=== PATIENT | male | born 1940 ===

== ENCOUNTER 2017-03-13 10:48 | Emergency (ER) | payer MEDICARE, MEDICAID ==
[2017-03-13 11:05] VITALS: BP 135/73; PULSE 80; RESP 18; TEMP 98; O2SAT 96
--- NOTE | 2017-03-13 11:23 | ED PDOC ---
Lower Extremity Pain/Injury Time Seen by Provider: 03/13/17 11:10 Chief Complaint (Nursing): Lower Extremity Problem/Injury Chief Complaint (Provider): right foot History Per: Patient History/Exam Limitations: no limitations Onset/Duration Of Symptoms: Days (x 2 weeks) Additional Complaint(s): Baron Zheng is a 76 year old male, with a previous medical history of diabetes, who presents to the ED with complaints of left foot skin breakage ongoing 2-3 weeks. Patient reports to developing pain and burning to the site last night which prompted ED visit. PMD: Dr. Melendez Past Medical History Reviewed: Historical Data, Nursing Documentation, Vital Signs Vital Signs: Last Vital Signs Temp 98 F 03/13/17 11:03 Pulse 80 03/13/17 11:03 Resp 18 03/13/17 11:03 BP 135/73 03/13/17 11:03 Pulse Ox 96 03/13/17 11:03 - Medical History PMH: Diabetes - Family History Family History: States: Unknown Family Hx - Allergies Allergies/Adverse Reactions: Allergies Allergy/AdvReac Type Severity Reaction Status Date / Time No Known Allergies Allergy Verified 03/13/17 11:03 Review of Systems ROS Statement: Except As Marked, All Systems Reviewed And Found Negative Musculoskeletal: Positive for: Foot Pain (right foot pain and burning ) Physical Exam - Reviewed Nursing Documentation Reviewed: Yes Vital Signs Reviewed: Yes - Physical Exam Appears: Positive for: Well, Non-toxic, No Acute Distress Skin: Positive for: Normal Color, Warm, Dry Extremity: Positive for: Other (4 cm ulceraton to the lateral right foot with small papular lesions proximally. no induration, crepitus or discharge noted). Negative for: Tenderness, Calf Tenderness Neurologic/Psych: Positive for: Alert, Oriented - ECG O2 Sat by Pulse Oximetry: 96 (RA) Pulse Ox Interpretation: Normal Medical Decision Making Medical Decision Making: Initial Impression: fungal foot infection Initial Plan: * accu-check * podiatry consult * reevaluation Scribe Attestation: Documented by Zelda Roberson, acting as a scribe for Zelda Haynes MD. Provider Scribe Attestation: All medical record entries made by the Scribe were at my direction and personally dictated by me. I have reviewed the chart and agree that the record accurately reflects my personal performance of the history, physical exam, medical decision making, and the department course for this patient. I have also personally directed, reviewed, and agree with the discharge instructions and disposition. Disposition - Clinical Impression Clinical Impression: Tinea pedis - Disposition Referrals: [facility] [Outside] Podiatry Clinic [Outside] Disposition: Routine/Home Disposition Time: 12:40 Condition: STABLE Instructions: Tinea Pedis (ED), Diabetic Foot Care (ED) Print Language: SOMALI
--- NOTE | 2017-03-13 12:19 | CP.PCM.CON ---
History of Present Illness - History of Present Illness History of Present Illness: 76 y/o male with PMHx of DM, HTN, pacemaker, and kidney stones seen at bedside in ED for superficial abrasion of R lateral foot. Pt states that he's had this in past. Pt states that the area gets really dry at times. Pt denies of having any pain to the area. Pt states that it is little itchy and he has picked at it a little bit. Pt denies of changing his shoes or starting a new activity recently. Pt states that he wears leather dress shoes at all times but has not been wearing it for the past couple of days because of the lesion. Pt denies of any trauma to the foot. Pt denies of any recent F/N/V/C/SOB. PMHx: DM, HTN, pacemaker, Kidney stones PSHx: Heart surgery Allergies: N.K.D.A Review of Systems - Constitutional Constitutional: As Per HPI Past Patient History - Past Social History Smoking Status: Never Smoked - CARDIAC Hx Pacemaker: Yes - ENDOCRINE/METABOLIC Hx Diabetes Mellitus Type 2: Yes - PSYCHIATRIC Hx Substance Use: No Meds Allergies/Adverse Reactions: Allergies Allergy/AdvReac Type Severity Reaction Status Date / Time No Known Allergies Allergy Verified 03/13/17 11:03 Physical Exam - Constitutional Appears: Well, Non-toxic, No Acute Distress - Extremities Exam Additional comments: VASC: DP/PT pulses are palpable 2/4 b/l, [employer] INST[employer]ER: < 3 sec x 10, TG: warm to cool, no pitting or non-pitting edema noted DERM: Superficial abrasion of epidermis on the lateral aspect of the right foot at 5th met-cuboid joint with minimal surrounding papular rash, no active drainage, no malodor, no surrounding erythema, no clinical suspicion of active infection NEURO: Protective sensation intact via ipswitch 4/4 b/l ORTHO: no pain on palpation of the lesion or surrounding the lesion - Neurological Exam Neurological exam: Alert, Oriented x3 - Psychiatric Exam Psychiatric exam: Normal Affect, Normal Mood Results - Vital Signs Recent Vital Signs: Last Vital Signs Temp 98 F 03/13/17 11:03 Pulse 80 03/13/17 11:03 Resp 18 03/13/17 11:03 BP 135/73 03/13/17 11:03 Pulse Ox 96 03/13/17 11:29 Assessment & Plan - Assessment and Plan (Free Text) Assessment: 76 y/o male seen at bedside in ED for superficial abrasion of the R foot Plan: Pt evaluated and chart reviewed Pt discussed in details with attending Dr. Orantes Vitals reviewed (afebrile) Cultures taken from the lesion Dressing applied using bacitracin cream, gauze, Kurlix, and ASHOK Pt educated to change the dressing using the cream daily Pt educated to keep the dressing dry at all times Pt educated to wear wide toe box shoe/open toe shoes Pt educated to follow up in next podiatry clinic Pt demonstrated verbal understanding Thank you for the consult - Date & Time Date: 03/13/17 Time: 12:26
== END 2017-03-13 13:00 | disposition home or self-care (01) ==
LOC: H.ER 10:48
DX: B35.3 Tinea pedis (principal); E11.9 Type 2 diabetes mellitus without complications

== ENCOUNTER 2017-12-29 17:10 | Inpatient (IN) | payer MEDICARE, MEDICAID ==
--- NOTE | 2017-12-29 18:18 | ED PDOC ---
HPI: Skin/Bite Injury Time Seen by Provider: 12/29/17 17:40 Chief Complaint (Nursing): Abnormal Skin Integrity Chief Complaint (Provider): Rash History Per: Patient History/Exam Limitations: no limitations Onset/Duration Of Symptoms: Days (14) Quality Of Symptoms: Itching Severity: Moderate Additional History Per: Patient Additional Complaint(s): 77 y/o male who reports that two weeks ago he started to have a rash on the medial left ankle that he thought was due to new shoes that he was wearing. However, the rash has worsened and has also developed on the anterior right lower leg, and bilateral arms. The rash is red and itching. Patient denies fever or chills. Last week, he saw podiatry, who started him on an ointment as he has a history of MRSA. Two days ago, patient saw PMD who started him on Levaquin. At baseline he often gets lesions on his arms due to taking Pradaxa. PMD: Dr. Al Greene Past Medical History Reviewed: Historical Data, Nursing Documentation, Vital Signs Vital Signs: Last Vital Signs Temp 97.5 F L 12/29/17 21:45 Pulse 77 12/29/17 21:45 Resp 20 12/29/17 21:45 BP 152/84 H 12/29/17 21:45 Pulse Ox 96 12/29/17 21:45 - Medical History PMH: Atrial Fibrillation, Diabetes, HTN Other PMH: LA x2, Pacemaker/Defibrulater in place, MRSA - Surgical History Surgical History: Pacemaker Other surgeries: Inguinal hernia repair x2, traumatic right second digit amputation - Family History Family History: States: Unknown Family Hx - Living Arrangements Living Arrangements: With Family - Social History Current smoker - smoking cessation education provided: No Alcohol: None Drugs: Denies - Home Medications Home Medications: Ambulatory Orders Medication Instructions Recorded Allopurinol [Zyloprim] 300 mg PO DAILY 12/29/17 Apixaban [Eliquis] 5 mg PO Q12 12/29/17 Aspirin [Ecotrin] 81 mg PO HS 12/29/17 Calcium Acetate [Phoslo] 667 mg PO DIN 12/29/17 Carvedilol [Coreg] 25 mg PO Q12 12/29/17 Dexlansoprazole [Dexilant] 30 mg PO DAILY 12/29/17 Ergocalciferol (Vitamin D2) 50,000 unit PO Q30D 12/29/17 [Vitamin D2] Folic Acid [Folic Acid] 400 mcg PO DAILY 12/29/17 Icosapent Ethyl [Vascepa] 2 gm PO Q12 12/29/17 Levocetirizine Dihydrochloride 5 mg PO DAILY 12/29/17 [Xyzal] Ranolazine [Ranexa] 500 mg PO Q12 12/29/17 Rosuvastatin Calcium [Crestor] 10 mg PO HS 12/29/17 Tamsulosin [Flomax] 0.4 mg PO HS 12/29/17 Triamcinolone Acetonide [Kenalog 1 appl TOP Q12 12/29/17 0.5% cream] Valsartan/Hydrochlorothiazide 1 tab PO DAILY 12/29/17 [Diovan Hct 160-12.5 mg Tab] hydrOXYzine Pamoate [Vistaril] 25 mg PO Q8 12/29/17 levoFLOXacin [Levaquin] 500 mg PO DAILY 12/29/17 metFORMIN [glucOPHAGE] 1,000 mg PO BID 12/29/17 - Allergies Allergies/Adverse Reactions: Allergies Allergy/AdvReac Type Severity Reaction Status Date / Time amoxicillin Allergy RASH Verified 12/29/17 17:32 Review of Systems ROS Statement: Except As Marked, All Systems Reviewed And Found Negative Constitutional: Negative for: Fever, Chills Musculoskeletal: Positive for: Other (edema of BUE) Skin: Positive for: Rash Physical Exam - Reviewed Nursing Documentation Reviewed: Yes (left Medial Ankle: red nonblanching circular rash with multiple satilite lesions also erythematous and nonblanching. Isolated papular lesions left medial knee. Right anterior tibia: red, nonblanching papules involving the entire anterior tibia. Bilateral arms: multiple purpuric areas of various agees of upper and lower arms, as well as blanching warm erythima right AC, indurated. Smaller area of warm indurated erythema in the left AC. Groin and axilla are without rash. Right thumb, diffuse dry scaly skin with bloody cracks to fold. reported as old eczema) Vital Signs Reviewed: Yes - Physical Exam Appears: Positive for: Non-toxic, No Acute Distress Skin: Positive for: Warm, Rash Eye Exam: Positive for: EOMI, PERRL ENT: Negative for: Pharyngeal Erythema, Tonsillar Exudate Neck: Positive for: Painless ROM, Supple Cardiovascular/Chest: Positive for: Regular Rate, Rhythm. Negative for: Murmur Respiratory: Positive for: Normal Breath Sounds. Negative for: Respiratory Distress Gastrointestinal/Abdominal: Positive for: Soft. Negative for: Tenderness Back: Positive for: Normal Inspection. Negative for: Decreased ROM Extremity: Positive for: Normal ROM. Negative for: Deformity Lymphatic: Negative for: Adenopathy Neurologic/Psych: Positive for: Alert. Negative for: Motor/Sensory Deficits - Laboratory Results Result Diagrams: 12/29/17 18:21 12/29/17 18:21 - ECG O2 Sat by Pulse Oximetry: 94 (RA) Pulse Ox Interpretation: Normal Medical Decision Making Medical Decision Making: Impression: Diffuse Rash Differential Diagnosis includes, but is not limited to: disseminated fungal infection, cellulites, MRSA, coagulopathy, bacterimia Plan: - Labs - Hospitalization for progressive skin rash failing outpatient antihistamine, antibiotic and antifungal treatments. 715p Labs unremarkable. [facility]. IV clindamycin, topical steroid and antifungal orderd. [facility] pt and family findings and plan of care. Scribe Attestation: Documented by Maddison Jimenez, acting as a scribe for Kenyatta Moore MD. Provider Scribe Attestation: All medical record entries made by the Scribe were at my direction and personally dictated by me. I have reviewed the chart and agree that the record accurately reflects my personal performance of the history, physical exam, medical decision making, and the department course for this patient. I have also personally directed, reviewed, and agree with the discharge instructions and disposition. Disposition - Clinical Impression Clinical Impression: Cellulitis of arm, Multiple ecchymoses of both upper arms, Rash in adult Counseled Patient/Family Regarding: Studies Performed, Diagnosis - Disposition Disposition Time: 19:00 Condition: FAIR - Pt Status Changed To: Hospital Disposition Of: Observation - POA Present On Arrival: None
[2017-12-29 18:51] LABS: BASO # 0.1 K/uL (0.0-0.2); BASO % 1.3 % (0.0-2.0); EOS # 0.8 K/uL (0.0-0.7); EOS % 7.9 % (0.0-4.0); HEMOGLOBIN 13.4 g/dL (12.0-18.0); LYMPH # 1.4 K/uL (1.0-4.3); LYMPH % 14.7 % (20.0-40.0); MEAN CELL VOLUME 90.5 fl (80.0-94.0); MEAN CORPUSCULAR HEMOGLOBIN 29.6 pg (27.0-31.0); MEAN CORPUSCULAR HGB CONC 32.7 g/dL (33.0-37.0); MEAN PLATELET VOLUME 7.7 fl (7.2-11.7); MONO # 0.9 K/uL (0.0-0.8); MONO % 9.6 % (0.0-10.0); NEUT # 6.4 K/uL (1.8-7.0); NEUT % 66.5 % (50.0-75.0); RBC 4.55 Mil/uL (4.40-5.90); RED CELL DISTRIBUTION WIDTH 14.9 % (11.5-14.5); WHITE BLOOD COUNT 9.6 K/uL (4.8-10.8)
[2017-12-29 18:57] LABS: VENOUS BLOOD GAS BASE EXCESS 1.2 mmol/L (0.0-2.0); VENOUS BLOOD GAS PCO2 50 mmHg (40-60); VENOUS BLOOD GAS PO2 49 mm/Hg (30-55); VENOUS BLOOD PH 7.35 (7.32-7.43)
[2017-12-29 19:06] LABS: ALB/GLOB RATIO 1.2 (1.0-2.1); ALBUMIN 3.9 g/dL (3.5-5.0); CALCIUM 9.8 mg/dL (8.4-10.2)
[2017-12-29 19:07] LABS: INR 1.5 (0.9-1.2); PARTIAL THROMBOPLASTIN TIME 54.9 Seconds (25.6-37.1); PROTHROMBIN TIME 17.1 Seconds (9.8-13.1)
[2017-12-29] MEDS ORDERED: Clindamycin in NS 300 MG/50 ML BAG IVPB STA (19:30)
[2017-12-29] MEDS ORDERED: DiphenhydrAMINE 50 mg/ml Inj IVP PRN (23:29)
[2017-12-30] MEDS: Aztreonam 1 GM in Sodium Chloride 0.9% 100 ML IVPB SCH ×3 (01:06→16:38)
[2017-12-30] MEDS: Omega-3-Acid Ethyl Esters 1 GM Cap PO SCH ×3 (01:38→21:37)
[2017-12-30] MEDS: Insulin Lispro (humaLOG) 100 Units/ml Inj SC SCH ×4 (07:01→22:00)
[2017-12-30 07:15] LABS: BASO # 0.1 K/uL (0.0-0.2); BASO % 1.1 % (0.0-2.0); EOS # 0.8 K/uL (0.0-0.7); EOS % 9.3 % (0.0-4.0); HEMOGLOBIN 13.1 g/dL (12.0-18.0); LYMPH # 1.2 K/uL (1.0-4.3); LYMPH % 15.1 % (20.0-40.0); MEAN CELL VOLUME 90.3 fl (80.0-94.0); MEAN CORPUSCULAR HEMOGLOBIN 29.9 pg (27.0-31.0); MEAN CORPUSCULAR HGB CONC 33.1 g/dL (33.0-37.0); MEAN PLATELET VOLUME 8.2 fl (7.2-11.7); MONO # 0.9 K/uL (0.0-0.8); MONO % 11.2 % (0.0-10.0); NEUT # 5.1 K/uL (1.8-7.0); NEUT % 63.3 % (50.0-75.0); NRBC % 0.1 % (0.0-0.0); RBC 4.37 Mil/uL (4.40-5.90); RED CELL DISTRIBUTION WIDTH 14.9 % (11.5-14.5); WHITE BLOOD COUNT 8.1 K/uL (4.8-10.8)
[2017-12-30 07:36] LABS: ALB/GLOB RATIO 1.3 (1.0-2.1); ALBUMIN 3.8 g/dL (3.5-5.0); CALCIUM 9.6 mg/dL (8.4-10.2)
[2017-12-30] MEDS: Pantoprazole 40 mg EC Tab PO SCH (08:36)
--- NOTE | 2017-12-30 08:48 | RAD ---
HISTORY: admit COMPARISON: No prior. FINDINGS: LUNGS: Peripheral left lower lobe calcified granuloma. No active pulmonary disease. PLEURA: No significant pleural effusion identified, no pneumothorax apparent. CARDIOVASCULAR: Left subclavian access AICD/ pacemaker. Atherosclerotic aortic calcifications. Cardiomediastinal silhouette enlarged. OSSEOUS STRUCTURES: Degenerative changes. VISUALIZED UPPER ABDOMEN: Normal. OTHER FINDINGS: None. IMPRESSION: No active disease.
--- NOTE | 2017-12-30 09:33 | CP.PCM.HP ---
History of Present Illness - History of Present Illness History of Present Illness: Cc: Skin rash/lesions A 77 year old male who reports that he got rash to the medial left ankle area after using new shoes which progressively worsened and the rash was also noticed on the anterior right lower leg and b/l arms which got worse. He describes the rash as red and itchy and non tender. Patient also denied fever or chills. States he saw a drier helper who treated him with an ointment to cover bacteria infection with no improvement. He then saw his primary care doctor who started him also on Levaquin. His lesions have gotten worse despite all the treatment and he showed up in the ER. Patient has a history of Atrial fibrillation, on anticoagulation with Eliquis and then after Xarelto. He also has a history of diabetes and hypertension. On physical exam, there is a erythematous maculopapular rash ob b/l lower extremities, non tender, no swelling. There was itching and excoriation deshpande on the skin. There was no rash on the back. The rest of the physical exam was normal. The patient was admitted for multiple rashes, cellulitis vs. eczematous rash vs. fungal rash. The patient was started on IV antibiotics in the ER. The patient was admitted to med-surg for further management Present on Admission - Present on Admission Any Indicators Present on Admission: No Review of Systems - Review of Systems All systems: reviewed and no additional remarkable complaints except (as stated) - Constitutional Constitutional: absent: Chills, Fever, Weakness - Cardiovascular Cardiovascular: absent: Chest Pain, Leg Edema - Respiratory Respiratory: absent: Cough, Dyspnea - Integumentary Integumentary: As Per HPI, Erythema, Lesions (bilateral LEs), New Lesions, Pruritus, Rash Past Patient History - Past Medical History & Family History Past Medical History?: Yes - Past Social History Alcohol: None Drugs: Denies - CARDIAC Hx Atrial Fibrillation: Yes Hx Hypertension: Yes Hx Pacemaker: Yes - PULMONARY Hx Respiratory Disorders: No - NEUROLOGICAL Hx Neurological Disorder: No - HEENT Hx HEENT Problems: No - RENAL Hx Chronic Kidney Disease: No - ENDOCRINE/METABOLIC Hx Endocrine Disorders: Yes Hx Diabetes Mellitus Type 2: Yes - HEMATOLOGICAL/ONCOLOGICAL Hx Blood Disorders: No - INTEGUMENTARY Hx Dermatological Problems: Yes Hx Cellulitis: Yes - MUSCULOSKELETAL/RHEUMATOLOGICAL Hx Musculoskeletal Disorders: No Hx Falls: No - GASTROINTESTINAL Hx Gastrointestinal Disorders: No - GENITOURINARY/GYNECOLOGICAL Hx Genitourinary Disorders: No - PSYCHIATRIC Hx Psychophysiologic Disorder: No Hx Substance Use: No - SURGICAL HISTORY Hx Surgeries: Yes Hx Herniorrhaphy: Yes Other/Comment: pacemaker insertion. 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 Hand - ANESTHESIA Hx Anesthesia: Yes Hx Anesthesia Reactions: No Hx Malignant Hyperthermia: No Has any member of the family had a problem w/ anesthesia?: No Meds Allergies/Adverse Reactions: Allergies Allergy/AdvReac Type Severity Reaction Status Date / Time amoxicillin Allergy RASH Verified 12/29/17 17:32 Physical Exam - Constitutional Appears: Well, No Acute Distress - Head Exam Head Exam: ATRAUMATIC, NORMOCEPHALIC - Eye Exam Eye Exam: EOMI, Normal appearance Pupil Exam: NORMAL ACCOMODATION - ENT Exam ENT Exam: Mucous Membranes Moist, Normal Exam - Neck Exam Neck exam: Positive for: Normal Inspection - Respiratory Exam Respiratory Exam: Clear to Auscultation Bilateral, NORMAL BREATHING PATTERN - Cardiovascular Exam Cardiovascular Exam: REGULAR RHYTHM, +S1, +S2 - GI/Abdominal Exam GI & Abdominal Exam: Normal Bowel Sounds, Soft - Rectal Exam Rectal Exam: Deferred - Extremities Exam Extremities exam: Positive for: full ROM Additional comments: skin rashes, erythema bilateral LEs Cellulitis RUE, ecchymosis bilateral UEs - Neurological Exam Neurological exam: Alert, Oriented x3, Reflexes Normal - Psychiatric Exam Psychiatric exam: Normal Affect, Normal Mood - Skin Skin Exam: Dry, Erythema, Rash Results - Vital Signs Recent Vital Signs: Last Vital Signs Temp 97.3 F L 12/30/17 08:13 Pulse 74 12/30/17 08:36 Resp 20 12/30/17 08:13 BP 110/68 12/30/17 08:36 Pulse Ox 97 12/30/17 08:13 - Labs Result Diagrams: 12/30/17 05:25 12/30/17 05:25 Labs: Laboratory Results - last 24 hr 12/29/17 12/29/17 12/29/17 18:21 18:21 18:21 WBC 9.6 RBC 4.55 Hgb 13.4 Hct 41.1 MCV 90.5 MCH 29.6 MCHC 32.7 L RDW 14.9 H Plt Count 225 MPV 7.7 Neut % (Auto) 66.5 Lymph % (Auto) 14.7 L [place] % (Auto) 9.6 Eos % (Auto) 7.9 H Baso % (Auto) 1.3 Neut # (Auto) 6.4 Lymph # (Auto) 1.4 [place] # (Auto) 0.9 H Eos # (Auto) 0.8 H Baso # (Auto) 0.1 ESR 14 PT 17.1 H INR 1.5 H APTT 54.9 H pO2 VBG pH VBG pCO2 VBG HCO3 VBG Total CO2 VBG O2 Sat (Calc) VBG Base Excess VBG Potassium Glucose Lactate FiO2 Crit Value Called To Crit Value Called By Crit Value Read Back Blood Gas Notified Time Sodium 142 Potassium 4.4 Chloride 102 Carbon Dioxide 25 Anion Gap 19 BUN 26 H Creatinine 1.6 H Est GFR ( Amer) 51 Est GFR (Non-Af Amer) 42 POC Glucose (mg/dL) Random Glucose 92 Calcium 9.8 Total Bilirubin 0.3 AST 28 ALT 31 Alkaline Phosphatase 45 Total Protein 7.0 Albumin 3.9 Globulin 3.1 Albumin/Globulin Ratio 1.2 TSH 3rd Generation Venous Blood Potassium 12/29/17 12/29/17 12/29/17 18:37 18:44 21:43 WBC RBC Hgb Hct MCV MCH MCHC RDW Plt Count MPV Neut % (Auto) Lymph % (Auto) [place] % (Auto) Eos % (Auto) Baso % (Auto) Neut # (Auto) Lymph # (Auto) [place] # (Auto) Eos # (Auto) Baso # (Auto) ESR PT INR APTT pO2 49 VBG pH 7.35 VBG pCO2 50 VBG HCO3 25.4 VBG Total CO2 29.1 H VBG O2 Sat (Calc) 79.4 H VBG Base Excess 1.2 VBG Potassium 4.3 Glucose 91 Lactate 2.0 FiO2 21.0 Crit Value Called To dayne Moore md Crit Value Called By [facility] Crit Value Read Back Y Blood Gas Notified Time 185 Sodium 138.0 Potassium Chloride 102.0 Carbon Dioxide Anion Gap BUN Creatinine Est GFR ( Amer) Est GFR (Non-Af Amer) POC Glucose (mg/dL) 77 80 Random Glucose Calcium Total Bilirubin AST ALT Alkaline Phosphatase Total Protein Albumin Globulin Albumin/Globulin Ratio TSH 3rd Generation Venous Blood Potassium 4.3 12/30/17 12/30/17 12/30/17 05:25 05:25 05:43 WBC 8.1 RBC 4.37 L Hgb 13.1 Hct 39.5 MCV 90.3 MCH 29.9 MCHC 33.1 RDW 14.9 H Plt Count 225 MPV 8.2 Neut % (Auto) 63.3 Lymph % (Auto) 15.1 L [place] % (Auto) 11.2 H Eos % (Auto) 9.3 H Baso % (Auto) 1.1 Neut # (Auto) 5.1 Lymph # (Auto) 1.2 [place] # (Auto) 0.9 H Eos # (Auto) 0.8 H Baso # (Auto) 0.1 ESR 17 PT INR APTT pO2 VBG pH VBG pCO2 VBG HCO3 VBG Total CO2 VBG O2 Sat (Calc) VBG Base Excess VBG Potassium Glucose Lactate FiO2 Crit Value Called To Crit Value Called By Crit Value Read Back Blood Gas Notified Time Sodium 144 Potassium 4.1 Chloride 101 Carbon Dioxide 28 Anion Gap 19 BUN 23 H Creatinine 1.5 Est GFR ( Amer) 55 Est GFR (Non-Af Amer) 46 POC Glucose (mg/dL) 99 Random Glucose 107 Calcium 9.6 Total Bilirubin 0.5 AST 25 ALT 30 Alkaline Phosphatase 48 Total Protein 6.8 Albumin 3.8 Globulin 3.0 Albumin/Globulin Ratio 1.3 TSH 3rd Generation 1.88 Venous Blood Potassium Assessment & Plan (1) Cellulitis of arm Assessment and Plan: IV antibiotics started Status: Acute (2) Rash in adult Assessment and Plan: Eczematous rashes vs. fungal infection IVF IV Benadryl Blood culture will monitor Status: Acute (3) Multiple ecchymoses of both upper arms Status: Acute
--- NOTE | 2017-12-30 11:45 | CARD ---
APPROVED REPORT EKG Measurement Heart [id number] <Conclusion> Atrial-sensed ventricular-paced rhythm Abnormal ECG
[2017-12-30] MEDS: DiphenhydrAMINE 50 mg/ml Inj IVP PRN (21:33)
[2017-12-30] MEDS: Docusate-Senna 50 mg-8.6 mg Tab PO SCH (21:37)
[2017-12-31] MEDS: Aztreonam 1 GM in Sodium Chloride 0.9% 100 ML IVPB SCH (01:17)
[2017-12-31] MEDS: DiphenhydrAMINE 50 mg/ml Inj IVP PRN ×2 (03:13→21:18)
[2017-12-31] MEDS: Insulin Lispro (humaLOG) 100 Units/ml Inj SC SCH ×4 (07:30→22:00)
[2017-12-31] MEDS: Omega-3-Acid Ethyl Esters 1 GM Cap PO SCH ×2 (08:28→21:17)
[2017-12-31] MEDS: Pantoprazole 40 mg EC Tab PO SCH (08:29)
--- NOTE | 2017-12-31 12:25 | US ---
PROCEDURE: Duplex ultrasound of the bilateral lower extremity arteries. HISTORY: CLAUDICATION COMPARISON: None available. TECHNIQUE: Grayscale and duplex Doppler evaluation of the bilateral common femoral, superficial femoral, popliteal, posterior tibial and dorsalis pedis arteries was performed. FINDINGS: RIGHT LOWER EXTREMITY: RIGHT COMMON FEMORAL ARTERY: Calcific atherosclerosis. Maximal flow velocity of 126.8 cm/s. RIGHT SUPERFICIAL FEMORAL ARTERY: * Proximal: Widely patent. Maximal flow velocity of 98.9 cm/s. * Mid: Widely patent. Maximal flow velocity of 93.3 cm/s. * Distal: Widely patent. Maximal flow velocity of 101.6 cm/s. RIGHT POPLITEAL ARTERY: Heavy calcific atherosclerosis. Maximal flow velocity of 42.8 cm/s. RIGHT ANTERIOR TIBIAL ARTERY: Widely patent. Maximal flow velocity of 31.2 cm/s. RIGHT POSTERIOR TIBIAL ARTERY: Heavy calcific atherosclerosis. Maximal flow velocity of 50.1 cm/s. RIGHT DORSALIS PEDIS ARTERY: Widely patent. Maximal flow velocity of 40.6 cm/s. LEFT LOWER EXTREMITY: LEFT COMMON FEMORAL ARTERY: Calcific atherosclerosis. Maximal flow velocity of 144.6 cm/s. LEFT SUPERFICIAL FEMORAL ARTERY: * Proximal: Calcific atherosclerosis. Maximal flow velocity of 55.9 cm/s. * Mid: Calcific atherosclerosis Maximal flow velocity of 95.5 cm/s. * Distal: Widely patent. Maximal flow velocity of 139.8 cm/s. LEFT POPLITEAL ARTERY: Calcific atherosclerosis Maximal flow velocity of 64.9 cm/s. LEFT ANTERIOR TIBIAL ARTERY: Widely patent. Maximal flow velocity of 26.3 cm/s. LEFT POSTERIOR TIBIAL ARTERY: Widely patent. Maximal flow velocity of 36.1 cm/s. LEFT DORSALIS PEDIS ARTERY: Widely patent. Maximal flow velocity of 64.0 cm/s. OTHER FINDINGS: Left ankle subcutaneous edema. IMPRESSION: Bilateral lower extremity arterial calcific atherosclerosis. No evidence of occlusion or hemodynamically significant stenosis.
[2017-12-31] MEDS: Docusate-Senna 50 mg-8.6 mg Tab PO SCH (21:17)
--- NOTE | 2017-12-31 22:34 | CP.PCM.PN ---
Subjective - Date & Time of Evaluation Date of Evaluation: 12/31/17 Time of Evaluation: 11:40 - Subjective Subjective: Seen and examined at bedside. Concerned about rash to lower extremities. B/l upper extremities still very itchy. Swelling and redness, right arm Objective - Vital Signs/Intake and Output Vital Signs (last 24 hours): Temp Pulse Resp BP Pulse Ox 97.6 F 86 20 135/85 97 12/31/17 16:10 12/31/17 21:16 12/31/17 16:10 12/31/17 21:16 12/31/17 16:10 - Medications Medications: Current Medications Allopurinol (Zyloprim) 300 mg PO DAILY [facility] Last Admin: 12/31/17 08:28 Dose: 300 mg Apixaban (Eliquis) 5 mg PO Q12 [facility] PRN Reason: Protocol Last Admin: 12/31/17 21:17 Dose: 5 mg Aspirin (Ecotrin) 81 mg PO HS [facility] Last Admin: 12/31/17 21:18 Dose: 81 mg Atorvastatin Calcium (Lipitor) 20 mg PO HS [facility] Last Admin: 12/31/17 21:17 Dose: 20 mg Carvedilol (Coreg) 25 mg PO Q12 [facility] Last Admin: 12/31/17 21:16 Dose: 25 mg Clotrimazole (Lotrimin 1% Cream) 1 applic TOP BID [facility] Last Admin: 12/31/17 16:30 Dose: 1 applic Diphenhydramine HCl (Benadryl) 25 mg IVP Q6 PRN PRN Reason: Itching / Pruritus Last Admin: 12/31/17 21:18 Dose: 25 mg Folic Acid (Folic Acid) 1 mg PO DAILY [facility] Last Admin: 12/31/17 08:28 Dose: 1 mg Home Med (Ranolazine [Ranexa]) 500 mg PO Q12 [facility] Last Admin: 12/31/17 21:18 Dose: 500 mg Hydrochlorothiazide (Microzide) 12.5 mg PO DAILY [facility] Last Admin: 12/31/17 08:28 Dose: 12.5 mg Hydrocortisone (Cortizone 1% Cream) 1 applic TOP BID [facility] Last Admin: 12/31/17 16:31 Dose: 1 applic Hydroxyzine Pamoate (Vistaril) 25 mg PO Q8 [facility] Last Admin: 12/31/17 16:30 Dose: 25 mg Insulin Human Lispro (Humalog) 0 units SC [facility] PRN Reason: Protocol Last Admin: 12/31/17 16:29 Dose: Not Given Loratadine (Claritin) 10 mg PO DAILY [facility] Last Admin: 12/31/17 08:29 Dose: 10 mg Metformin HCl (Glucophage) 1,000 mg PO BID [facility] Last Admin: 12/31/17 16:31 Dose: 1,000 mg Zuiju-9-[id number] Ethyl Esters (Lovaza) 2 gm PO Q12 [facility] Last Admin: 12/31/17 21:17 Dose: 2 gm Pantoprazole Sodium (Protonix Ec Tab) 40 mg PO DAILY [facility] Last Admin: 12/31/17 08:29 Dose: 40 mg Senna/Docusate Sodium (Senokot S 50 Mg-8.6 Mg) 2 tab PO HS [facility] Last Admin: 12/31/17 21:17 Dose: 2 tab Tamsulosin HCl (Flomax) 0.4 mg PO HS [facility] Last Admin: 12/31/17 21:17 Dose: 0.4 mg Valsartan (Diovan) 160 mg PO DAILY [facility] Last Admin: 12/31/17 08:29 Dose: 160 mg - Labs Labs: 12/30/17 05:25 12/30/17 05:25 PT 17.1 Seconds (9.8-13.1) H 12/29/17 18:21 INR 1.5 (0.9-1.2) H 12/29/17 18:21 APTT 54.9 Seconds (25.6-37.1) H 12/29/17 18:21 - Constitutional Appears: Well, No Acute Distress - Head Exam Head Exam: ATRAUMATIC, NORMOCEPHALIC - Respiratory Exam Respiratory Exam: Clear to Ausculation Bilateral, NORMAL BREATHING PATTERN - Cardiovascular Exam Cardiovascular Exam: REGULAR RHYTHM, +S1, +S2 - GI/Abdominal Exam GI & Abdominal Exam: Soft, Normal Bowel Sounds - Extremities Exam Additional comments: Rash b/l lower extremities Cellulitis MARIE Multiple ecchymosis b/l upper extremities Assessment and Plan (1) Cellulitis of arm Assessment & Plan: IV antibiotics started Status: Acute (2) Rash in adult Assessment & Plan: Eczematous rashes vs. fungal infection IV Diflucan IV Benadryl prn F/u blood culture F/u labs Monitor Status: Acute (3) Multiple ecchymoses of both upper arms Status: Acute
[2018-01-01] MEDS: Insulin Lispro (humaLOG) 100 Units/ml Inj SC SCH ×4 (06:34→22:40)
[2018-01-01] MEDS: Omega-3-Acid Ethyl Esters 1 GM Cap PO SCH (08:22)
[2018-01-01] MEDS: Pantoprazole 40 mg EC Tab PO SCH (08:23)
[2018-01-01] MEDS ORDERED: Fluconazole IV 200mg/100 ml NS 100 ML IVPB ONE (11:18)
--- NOTE | 2018-01-01 12:27 | CP.PCM.CON ---
History of Present Illness - History of Present Illness History of Present Illness: 77 y/o male who reports that two weeks ago he started to have a rash on the medial left ankle that he thought was due to new shoes that he was wearing. However, the rash has worsened and has also developed on the anterior right lower leg, and bilateral arms. The rash is red and itching. Patient denies fever or chills. Last week, he saw podiatry, who started him on an ointment as he has a history of MRSA. Two days ago, patient saw PMD who started him on Levaquin. At baseline he often gets lesions on his arms due to taking Pradaxa. 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, MRSA - Surgical History Surgical History: Pacemaker Other surgeries: Inguinal hernia repair x2, traumatic right second digit amputation Past Patient History - Past Medical History & Family History Past Medical History?: Yes - Past Social History Alcohol: None Drugs: Denies - CARDIAC Hx Atrial Fibrillation: Yes Hx Hypertension: Yes Hx Pacemaker: Yes - PULMONARY Hx Respiratory Disorders: No - NEUROLOGICAL Hx Neurological Disorder: No - HEENT Hx HEENT Problems: No - RENAL Hx Chronic Kidney Disease: No - ENDOCRINE/METABOLIC Hx Endocrine Disorders: Yes Hx Diabetes Mellitus Type 2: Yes - HEMATOLOGICAL/ONCOLOGICAL Hx Blood Disorders: No - INTEGUMENTARY Hx Dermatological Problems: Yes Hx Cellulitis: Yes - MUSCULOSKELETAL/RHEUMATOLOGICAL Hx Musculoskeletal Disorders: No Hx Falls: No - GASTROINTESTINAL Hx Gastrointestinal Disorders: No - GENITOURINARY/GYNECOLOGICAL Hx Genitourinary Disorders: No - PSYCHIATRIC Hx Psychophysiologic Disorder: No Hx Substance Use: No - SURGICAL HISTORY Hx Surgeries: Yes Hx Herniorrhaphy: Yes Other/Comment: pacemaker insertion. 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 Hand - ANESTHESIA Hx Anesthesia: Yes Hx Anesthesia Reactions: No Hx Malignant Hyperthermia: No Has any member of the family had a problem w/ anesthesia?: No Meds Home Medications: Home Medication List Medication Instructions Recorded Confirmed Type Calamine/Zinc Oxide [Calamine 1 applic TOP BID PRN #1 bottle 01/03/18 Rx Lotion] Cephalexin [Keflex] 500 mg PO Q8 #21 01/03/18 Rx Clotrimazole 1% Cream [Lotrimin 1% 1 applic TOP BID #1 tube 01/03/18 Rx CREAM] Fluconazole [Diflucan] 100 mg PO DAILY #10 tab 01/03/18 Rx Allergies/Adverse Reactions: Allergies Allergy/AdvReac Type Severity Reaction Status Date / Time amoxicillin Allergy RASH Verified 12/29/17 17:32 - Medications Medications: Current Medications Allopurinol (Zyloprim) 300 mg PO DAILY [facility] Last Admin: 01/01/18 08:23 Dose: 300 mg Apixaban (Eliquis) 5 mg PO Q12 [facility] PRN Reason: Protocol Last Admin: 01/01/18 08:21 Dose: 5 mg Aspirin (Ecotrin) 81 mg PO HS [facility] Last Admin: 12/31/17 21:18 Dose: 81 mg Atorvastatin Calcium (Lipitor) 20 mg PO HS [facility] Last Admin: 12/31/17 21:17 Dose: 20 mg Carvedilol (Coreg) 25 mg PO Q12 [facility] Last Admin: 01/01/18 08:20 Dose: 25 mg Clotrimazole (Lotrimin 1% Cream) 1 applic TOP BID [facility] Last Admin: 01/01/18 08:21 Dose: 1 applic Diphenhydramine HCl (Benadryl) 25 mg IVP Q6 PRN PRN Reason: Itching / Pruritus Last Admin: 12/31/17 21:18 Dose: 25 mg Folic Acid (Folic Acid) 1 mg PO DAILY [facility] Last Admin: 01/01/18 08:21 Dose: 1 mg Home Med (Ranolazine [Ranexa]) 500 mg PO Q12 [facility] Last Admin: 01/01/18 08:19 Dose: 500 mg Hydrochlorothiazide (Microzide) 12.5 mg PO DAILY [facility] Last Admin: 01/01/18 08:23 Dose: 12.5 mg Hydrocortisone (Cortizone 1% Cream) 1 applic TOP BID [facility] Last Admin: 01/01/18 08:22 Dose: 1 applic Hydroxyzine Pamoate (Vistaril) 25 mg PO Q8 [facility] Last Admin: 01/01/18 08:23 Dose: 25 mg Fluconazole (Diflucan Iv 200 Mg/100 Ml Ns) 100 mls @ 100 mls/hr IVPB ONCE ONE PRN Reason: Protocol Stop: 01/01/18 12:17 Fluconazole (Diflucan Iv 100 Mg/50 Ml Ns) 50 mls @ 50 mls/hr IVPB DAILY [facility] PRN Reason: Protocol Insulin Human Lispro (Humalog) 0 units SC ACHS [facility] PRN Reason: Protocol Last Admin: 01/01/18 11:53 Dose: Not Given Loratadine (Claritin) 10 mg PO DAILY [facility] Last Admin: 01/01/18 08:20 Dose: 10 mg Metformin HCl (Glucophage) 1,000 mg PO BID [facility] Last Admin: 01/01/18 08:21 Dose: 1,000 mg Zanau-2-Pssp Ethyl Esters (Lovaza) 2 gm PO Q12 [facility] Last Admin: 01/01/18 08:22 Dose: 2 gm Pantoprazole Sodium (Protonix Ec Tab) 40 mg PO DAILY [facility] Last Admin: 01/01/18 08:23 Dose: 40 mg Senna/Docusate Sodium (Senokot S 50 Mg-8.6 Mg) 2 tab PO HS [facility] Last Admin: 12/31/17 21:17 Dose: 2 tab Tamsulosin HCl (Flomax) 0.4 mg PO [facility] Last Admin: 12/31/17 21:17 Dose: 0.4 mg Valsartan (Diovan) 160 mg PO DAILY [facility] Last Admin: 01/01/18 08:22 Dose: 160 mg Physical Exam - Constitutional Appears: Non-toxic, Chronically Ill - Head Exam Head Exam: NORMOCEPHALIC - Eye Exam Eye Exam: PERRL. absent: Scleral icterus - ENT Exam ENT Exam: Mucous Membranes Dry - Neck Exam Neck exam: Negative for: Lymphadenopathy - Respiratory Exam Respiratory Exam: Decreased Breath Sounds, Rhonchi - Cardiovascular Exam Cardiovascular Exam: REGULAR RHYTHM, +S1, +S2 - GI/Abdominal Exam GI & Abdominal Exam: Diminished Bowel Sounds, Soft. absent: Tenderness - Rectal Exam Rectal Exam: Deferred - Exam Exam: NORMAL INSPECTION - Extremities Exam Extremities exam: Positive for: pedal edema, tenderness, pedal pulses present. Negative for: calf tenderness - Back Exam Back exam: absent: CVA tenderness (L), CVA tenderness (R) - Neurological Exam Neurological exam: Alert, CN II-XII Intact, Oriented x3, Reflexes Normal - Psychiatric Exam Psychiatric exam: Normal Mood Results - Vital Signs Recent Vital Signs: Last Vital Signs Temp 97.6 F 01/01/18 08:26 Pulse 86 01/01/18 08:26 Resp 20 01/01/18 08:26 BP 130/79 01/01/18 08:26 Pulse Ox 94 L 01/01/18 08:26 - Labs Result Diagrams: 01/02/18 06:30 01/02/18 06:30 Labs: Laboratory Results - last 24 hr 12/30/17 12/31/17 12/31/17 05:25 15:43 22:00 POC Glucose (mg/dL) 121 H 146 H C-Reactive Protein 9.60 01/01/18 05:14 POC Glucose (mg/dL) 96 C-Reactive Protein Assessment & Plan (1) Rash in adult Status: Acute (2) Tinea pedis Status: Acute - Assessment and Plan (Free Text) Assessment: cont rx will follow
[2018-01-01] MEDS ORDERED: Calamine/Zinc Oxide LOTION TOP PRN (12:28)
[2018-01-01] MEDS ORDERED: Iohexol 240 (50 ml) PO ONE (18:47)
[2018-01-01] MEDS ORDERED: Iodixanol 320 MG/ML 100 ML BOTTLE IV ONE (21:02)
[2018-01-01] MEDS ORDERED: Sodium Chloride 0.9% 0 ML ONE (21:02)
[2018-01-01] MEDS: DiphenhydrAMINE 50 mg/ml Inj IVP PRN (22:38)
--- NOTE | 2018-01-01 22:39 | CT ---
EXAM: CT Abdomen and Pelvis Without Intravenous Contrast CLINICAL HISTORY: 77 years old, male; Signs and symptoms; Other: High tumor marker; Patient HX: Multiple rashes, cellulitis; Additional info: High tumor marker. See phy. Doc. TECHNIQUE: Axial computed tomography images of the abdomen and pelvis without intravenous contrast. All CT scans at this facility use one or more dose reduction techniques, viz.: automated exposure control; ma/kV adjustment per patient size (including targeted exams where dose is matched to indication; i.e. head); or iterative reconstruction technique. Coronal and sagittal reformatted images were created and reviewed. COMPARISON: No relevant prior studies available. FINDINGS: Limitations: Lack of intravenous contrast. Lung bases: Hyperinflation of lung bases. Minimal peripheral atelectasis/scarring. MARY calcified granuloma. Heart: Calcification along wall of left ventricle. Pacemaker leads. ABDOMEN: Liver: Unremarkable. Gallbladder and bile ducts: No calcified stones. No ductal dilation. Pancreas: Unremarkable. No ductal dilation. Spleen: No splenomegaly. Adrenals: No mass. Kidneys and ureters: Mild stranding about kidneys, nonspecific. No renal calculi. Probable 2.0 cm RIGHT renal cyst. No hydronephrosis. Stomach and bowel: Few scattered diverticula within colon. No associated inflammatory stranding. No definite mural thickening. No obstruction. PELVIS: Appendix: Normal caliber. No inflammation. Bladder: Apparent mild bladder wall thickening. Incomplete distention, limiting evaluation. No stones. Reproductive: Mildly enlarged prostate. ABDOMEN and PELVIS: Intraperitoneal space: No significant fluid collection. No free air. Bones/joints: Degenerative changes and scoliosis of spine. Probable bone islands. No acute fracture. Soft tissues: Mild hyperdense fluid/soft tissue density along left inguinal canal with mild stranding. Tiny umbilical hernia containing fat. Vasculature: Moderate to extensive atherosclerotic disease. No aneurysm. Lymph nodes: No pathologically enlarged lymph nodes. IMPRESSION: 1. Diverticulosis without definite CT evidence of diverticulitis. 2. Prostate enlargement. Followup as clinically warranted. 3. Possible bladder wall thickening. Clinical correlation is needed. 4. Mild hyperdense fluid/soft tissue density along left inguinal canal with mild stranding, possibly postsurgical. Clinical correlation is needed. 5. Incidental/non-acute findings are described above.
--- NOTE | 2018-01-01 23:12 | CP.PCM.PN ---
Subjective - Date & Time of Evaluation Date of Evaluation: 01/01/18 Time of Evaluation: 17:15 - Subjective Subjective: Pt seen and examined at bedside. Has rash to lower extremities. B/l upper extremities pruritic. Swelling and redness, right arm Objective - Vital Signs/Intake and Output Vital Signs (last 24 hours): Temp Pulse Resp BP Pulse Ox 97.7 F 69 17 153/75 H 97 01/01/18 17:53 01/01/18 22:38 01/01/18 17:53 01/01/18 22:38 01/01/18 17:53 - Medications Medications: Current Medications Allopurinol (Zyloprim) 300 mg PO DAILY [facility] Last Admin: 01/01/18 08:23 Dose: 300 mg Apixaban (Eliquis) 5 mg PO Q12 [facility] PRN Reason: Protocol Last Admin: 01/01/18 22:38 Dose: 5 mg Aspirin (Ecotrin) 81 mg PO HS [facility] Last Admin: 01/01/18 22:37 Dose: 81 mg Atorvastatin Calcium (Lipitor) 20 mg PO HS [facility] Last Admin: 01/01/18 22:37 Dose: 20 mg Calamine (Calamine Lotion) 1 applic TOP BID PRN PRN Reason: Itching / Pruritus Last Admin: 01/01/18 13:54 Dose: 1 applic Carvedilol (Coreg) 25 mg PO Q12 [facility] Last Admin: 01/01/18 22:38 Dose: 25 mg Clotrimazole (Lotrimin 1% Cream) 1 applic TOP BID [facility] Last Admin: 01/01/18 16:25 Dose: 1 applic Diphenhydramine HCl (Benadryl) 25 mg IVP Q6 PRN PRN Reason: Itching / Pruritus Last Admin: 01/01/18 22:38 Dose: 25 mg Folic Acid (Folic Acid) 1 mg PO DAILY [facility] Last Admin: 01/01/18 08:21 Dose: 1 mg Home Med (Ranolazine [Ranexa]) 500 mg PO Q12 [facility] Last Admin: 01/01/18 08:19 Dose: 500 mg Hydrochlorothiazide (Microzide) 12.5 mg PO DAILY [facility] Last Admin: 01/01/18 08:23 Dose: 12.5 mg Hydrocortisone (Cortizone 1% Cream) 1 applic TOP BID [facility] Last Admin: 01/01/18 16:28 Dose: 1 applic Hydroxyzine Pamoate (Vistaril) 25 mg PO Q8 [facility] Last Admin: 01/01/18 16:26 Dose: 25 mg Fluconazole (Diflucan Iv 100 Mg/50 Ml Ns) 50 mls @ 50 mls/hr IVPB DAILY [facility] PRN Reason: Protocol Insulin Human Lispro (Humalog) 0 units SC ACHS [facility] PRN Reason: Protocol Last Admin: 01/01/18 22:40 Dose: Not Given Loratadine (Claritin) 10 mg PO DAILY [facility] Last Admin: 01/01/18 08:20 Dose: 10 mg Metformin HCl (Glucophage) 1,000 mg PO BID [facility] Last Admin: 01/01/18 17:11 Dose: 1,000 mg Qjpnv-1-[id number] Ethyl Esters (Lovaza) 2 gm PO Q12 [facility] Last Admin: 01/01/18 08:22 Dose: 2 gm Pantoprazole Sodium (Protonix Ec Tab) 40 mg PO DAILY [facility] Last Admin: 01/01/18 08:23 Dose: 40 mg Senna/Docusate Sodium (Senokot S 50 Mg-8.6 Mg) 2 tab PO HS [facility] Last Admin: 12/31/17 21:17 Dose: 2 tab Tamsulosin HCl (Flomax) 0.4 mg PO HS [facility] Last Admin: 01/01/18 22:38 Dose: 0.4 mg Valsartan (Diovan) 160 mg PO DAILY [facility] Last Admin: 01/01/18 08:22 Dose: 160 mg - Labs Labs: 12/30/17 05:25 12/30/17 05:25 PT 17.1 Seconds (9.8-13.1) H 12/29/17 18:21 INR 1.5 (0.9-1.2) H 12/29/17 18:21 APTT 54.9 Seconds (25.6-37.1) H 12/29/17 18:21 - Constitutional Appears: Well, No Acute Distress - Head Exam Head Exam: ATRAUMATIC, NORMOCEPHALIC - Respiratory Exam Respiratory Exam: Clear to Ausculation Bilateral, NORMAL BREATHING PATTERN - Cardiovascular Exam Cardiovascular Exam: REGULAR RHYTHM, +S1, +S2 - GI/Abdominal Exam GI & Abdominal Exam: Soft, Normal Bowel Sounds - Extremities Exam Additional comments: Rash on b/l lower extremities RUE swelling and cellulitis. B/l UEs with multiple ecchymotic bruises - Neurological Exam Neurological Exam: Alert, Normal Gait, Oriented x3 - Psychiatric Exam Psychiatric exam: Normal Affect, Normal Mood - Skin Skin Exam: Erythema, Rash, Warm Assessment and Plan (1) Cellulitis of arm Assessment & Plan: On IV antibiotics Status: Acute (2) Rash in adult Assessment & Plan: Eczematous rashes vs. fungal infection IV Diflucan IV Benadryl prn F/u blood culture Check tumor markers ID consult Dermatology consult Status: Acute (3) Multiple ecchymoses of both upper arms Status: Acute
[2018-01-02] MEDS: Omega-3-Acid Ethyl Esters 1 GM Cap PO SCH ×3 (01:02→21:01)
[2018-01-02] MEDS: Docusate-Senna 50 mg-8.6 mg Tab PO SCH ×2 (01:03→21:01)
[2018-01-02 07:08] LABS: HEMOGLOBIN 13.4 g/dL (12.0-18.0); MEAN CELL VOLUME 89.5 fl (80.0-94.0); MEAN CORPUSCULAR HEMOGLOBIN 29.8 pg (27.0-31.0); MEAN CORPUSCULAR HGB CONC 33.3 g/dL (33.0-37.0); RBC 4.48 Mil/uL (4.40-5.90); RED CELL DISTRIBUTION WIDTH 14.7 % (11.5-14.5); WHITE BLOOD COUNT 8.5 K/uL (4.8-10.8)
[2018-01-02 07:37] LABS: CALCIUM 9.7 mg/dL (8.4-10.2)
[2018-01-02] MEDS: Insulin Lispro (humaLOG) 100 Units/ml Inj SC SCH ×4 (08:34→21:47)
[2018-01-02] MEDS: Pantoprazole 40 mg EC Tab PO SCH (08:35)
[2018-01-02] MEDS: Fluconazole IV 100mg/50 ml NS 50 ML IVPB SCH (08:41)
--- NOTE | 2018-01-02 12:19 | CP.PCM.PN ---
Subjective - Date & Time of Evaluation Date of Evaluation: 01/02/18 Time of Evaluation: 09:00 - Subjective Subjective: afeb skin rash improving iv rx in progress Objective - Vital Signs/Intake and Output Vital Signs (last 24 hours): Temp Pulse Resp BP Pulse Ox 97.6 F 75 18 102/67 94 L 01/02/18 08:21 01/02/18 08:21 01/02/18 08:21 01/02/18 08:21 01/02/18 08:21 - Medications Medications: Current Medications Allopurinol (Zyloprim) 300 mg PO DAILY [facility] Last Admin: 01/02/18 08:36 Dose: 300 mg Apixaban (Eliquis) 5 mg PO Q12 [facility] PRN Reason: Protocol Last Admin: 01/02/18 08:34 Dose: 5 mg Aspirin (Ecotrin) 81 mg PO HS [facility] Last Admin: 01/01/18 22:37 Dose: 81 mg Atorvastatin Calcium (Lipitor) 20 mg PO HS [facility] Last Admin: 01/01/18 22:37 Dose: 20 mg Calamine (Calamine Lotion) 1 applic TOP BID PRN PRN Reason: Itching / Pruritus Last Admin: 01/01/18 13:54 Dose: 1 applic Carvedilol (Coreg) 25 mg PO Q12 [facility] Last Admin: 01/02/18 08:36 Dose: 25 mg Clotrimazole (Lotrimin 1% Cream) 1 applic TOP BID [facility] Last Admin: 01/02/18 08:33 Dose: 1 applic Diphenhydramine HCl (Benadryl) 25 mg IVP Q6 PRN PRN Reason: Itching / Pruritus Last Admin: 01/01/18 22:38 Dose: 25 mg Folic Acid (Folic Acid) 1 mg PO DAILY [facility] Last Admin: 01/02/18 08:32 Dose: 1 mg Home Med (Ranolazine [Ranexa]) 500 mg PO Q12 [facility] Last Admin: 01/02/18 08:32 Dose: 500 mg Hydrochlorothiazide (Microzide) 12.5 mg PO DAILY [facility] Last Admin: 01/02/18 08:33 Dose: 12.5 mg Hydrocortisone (Cortizone 1% Cream) 1 applic TOP BID [facility] Last Admin: 01/02/18 08:35 Dose: 1 applic Hydroxyzine Pamoate (Vistaril) 25 mg PO Q8 [facility] Last Admin: 01/02/18 08:36 Dose: 25 mg Fluconazole (Diflucan Iv 100 Mg/50 Ml Ns) 50 mls @ 50 mls/hr IVPB DAILY [facility] PRN Reason: Protocol Last Admin: 01/02/18 08:41 Dose: 50 mls/hr Insulin Human Lispro (Humalog) 0 units SC ACHS [facility] PRN Reason: Protocol Last Admin: 01/02/18 08:34 Dose: Not Given Loratadine (Claritin) 10 mg PO DAILY [facility] Last Admin: 01/02/18 08:31 Dose: 10 mg Metformin HCl (Glucophage) 1,000 mg PO BID [facility] Last Admin: 01/02/18 08:31 Dose: 1,000 mg Yhiti-1-Wqub Ethyl Esters (Lovaza) 2 gm PO Q12 [facility] Last Admin: 01/02/18 08:33 Dose: 2 gm Pantoprazole Sodium (Protonix Ec Tab) 40 mg PO DAILY [facility] Last Admin: 01/02/18 08:35 Dose: 40 mg Senna/Docusate Sodium (Senokot S 50 Mg-8.6 Mg) 2 tab PO HS [facility] Last Admin: 01/02/18 01:03 Dose: 2 tab Tamsulosin HCl (Flomax) 0.4 mg PO HS [facility] Last Admin: 01/01/18 22:38 Dose: 0.4 mg Valsartan (Diovan) 160 mg PO DAILY [facility] Last Admin: 01/02/18 08:35 Dose: 160 mg - Labs Labs: 01/02/18 06:30 01/02/18 06:30 PT 17.1 Seconds (9.8-13.1) H 12/29/17 18:21 INR 1.5 (0.9-1.2) H 12/29/17 18:21 APTT 54.9 Seconds (25.6-37.1) H 12/29/17 18:21 - Constitutional Appears: Non-toxic, Chronically Ill - Head Exam Head Exam: NORMOCEPHALIC - Eye Exam Eye Exam: PERRL - ENT Exam ENT Exam: Mucous Membranes Dry - Neck Exam Neck Exam: absent: Lymphadenopathy - Respiratory Exam Respiratory Exam: Decreased Breath Sounds - Cardiovascular Exam Cardiovascular Exam: REGULAR RHYTHM - GI/Abdominal Exam GI & Abdominal Exam: Distended - Rectal Exam Rectal Exam: Deferred Assessment and Plan - Assessment and Plan (Free Text) Plan: cont rx as ordered
[2018-01-02] MEDS: ceFAZolin 1 GM in Sodium Chloride 0.9% 100 ML IVPB SCH ×2 (14:31→21:00)
--- NOTE | 2018-01-02 22:04 | CP.PCM.PN ---
Subjective - Date & Time of Evaluation Date of Evaluation: 01/02/18 Time of Evaluation: 17:15 - Subjective Subjective: Seen and examined at bedside. Feels better today Itching is better. Has been using topical lotion Objective - Vital Signs/Intake and Output Vital Signs (last 24 hours): Temp Pulse Resp BP Pulse Ox 97.6 F 90 20 115/68 95 01/02/18 16:14 01/02/18 21:02 01/02/18 16:14 01/02/18 21:02 01/02/18 16:14 - Medications Medications: Current Medications Allopurinol (Zyloprim) 300 mg PO DAILY [facility] Last Admin: 01/02/18 08:36 Dose: 300 mg Apixaban (Eliquis) 5 mg PO Q12 [facility] PRN Reason: Protocol Last Admin: 01/02/18 21:01 Dose: 5 mg Aspirin (Ecotrin) 81 mg PO HS [facility] Last Admin: 01/02/18 21:02 Dose: 81 mg Atorvastatin Calcium (Lipitor) 20 mg PO HS [facility] Last Admin: 01/02/18 21:01 Dose: 20 mg Calamine (Calamine Lotion) 1 applic TOP BID PRN PRN Reason: Itching / Pruritus Last Admin: 01/01/18 13:54 Dose: 1 applic Carvedilol (Coreg) 25 mg PO Q12 [facility] Last Admin: 01/02/18 21:02 Dose: 25 mg Clotrimazole (Lotrimin 1% Cream) 1 applic TOP BID [facility] Last Admin: 01/02/18 16:30 Dose: 1 applic Diphenhydramine HCl (Benadryl) 25 mg IVP Q6 PRN PRN Reason: Itching / Pruritus Last Admin: 01/01/18 22:38 Dose: 25 mg Folic Acid (Folic Acid) 1 mg PO DAILY [facility] Last Admin: 01/02/18 08:32 Dose: 1 mg Home Med (Ranolazine [Ranexa]) 500 mg PO Q12 [facility] Last Admin: 01/02/18 21:01 Dose: 500 mg Hydrochlorothiazide (Microzide) 12.5 mg PO DAILY [facility] Last Admin: 01/02/18 08:33 Dose: 12.5 mg Hydrocortisone (Cortizone 1% Cream) 1 applic TOP BID [facility] Last Admin: 01/02/18 16:29 Dose: 1 applic Hydroxyzine Pamoate (Vistaril) 25 mg PO Q8 [facility] Last Admin: 01/02/18 16:30 Dose: 25 mg Fluconazole (Diflucan Iv 100 Mg/50 Ml Ns) 50 mls @ 50 mls/hr IVPB DAILY [facility] PRN Reason: Protocol Last Admin: 01/02/18 08:41 Dose: 50 mls/hr Cefazolin Sodium 1 gm/ Sodium (Chloride) 100 mls @ 100 mls/hr IVPB Q12 [facility] PRN Reason: Protocol Last Admin: 01/02/18 21:00 Dose: 100 mls/hr Insulin Human Lispro (Humalog) 0 units SC ACHS [facility] PRN Reason: Protocol Last Admin: 01/02/18 21:47 Dose: Not Given Loratadine (Claritin) 10 mg PO DAILY [facility] Last Admin: 01/02/18 08:31 Dose: 10 mg Metformin HCl (Glucophage) 1,000 mg PO BID [facility] Last Admin: 01/02/18 16:29 Dose: 1,000 mg Kjiju-9-Poed Ethyl Esters (Lovaza) 2 gm PO Q12 [facility] Last Admin: 01/02/18 21:01 Dose: 2 gm Pantoprazole Sodium (Protonix Ec Tab) 40 mg PO DAILY [facility] Last Admin: 01/02/18 08:35 Dose: 40 mg Senna/Docusate Sodium (Senokot S 50 Mg-8.6 Mg) 2 tab PO HS [facility] Last Admin: 01/02/18 21:01 Dose: 2 tab Tamsulosin HCl (Flomax) 0.4 mg PO HS [facility] Last Admin: 01/02/18 21:00 Dose: 0.4 mg Valsartan (Diovan) 160 mg PO DAILY [facility] Last Admin: 01/02/18 08:35 Dose: 160 mg - Labs Labs: 01/02/18 06:30 01/02/18 06:30 PT 17.1 Seconds (9.8-13.1) H 12/29/17 18:21 INR 1.5 (0.9-1.2) H 12/29/17 18:21 APTT 54.9 Seconds (25.6-37.1) H 12/29/17 18:21 - Constitutional Appears: Well, No Acute Distress - Head Exam Head Exam: ATRAUMATIC, NORMOCEPHALIC - Respiratory Exam Respiratory Exam: Clear to Ausculation Bilateral, NORMAL BREATHING PATTERN - Cardiovascular Exam Cardiovascular Exam: REGULAR RHYTHM, +S1, +S2 - GI/Abdominal Exam GI & Abdominal Exam: Soft, Normal Bowel Sounds - Extremities Exam Additional comments: Rash b/l LEs Cellulitis, multiple ecchymotic bruises on upper extremities - Neurological Exam Neurological Exam: Alert, CN II-XII Intact, Oriented x3 - Psychiatric Exam Psychiatric exam: Normal Affect, Normal Mood - Skin Skin Exam: Dry, Erythema (improved), Rash, Warm Assessment and Plan (1) Cellulitis of arm Assessment & Plan: Continue IV antibiotics Status: Acute (2) Rash in adult Assessment & Plan: Eczematous rashes vs. fungal infection IV Diflucan IV Benadryl prn F/u blood culture Elevated CA19-9 CT Abdomen reviewed ID consult appreciated Dermatology consult appreciated Status: Acute (3) Multiple ecchymoses of both upper arms Status: Acute
[2018-01-02] MEDS: DiphenhydrAMINE 50 mg/ml Inj IVP PRN (23:02)
[2018-01-03 00:42] VITALS: O2SAT 96
[2018-01-03 08:00] VITALS: BP 119/73; PULSE 77; RESP 20; TEMP 97.5
[2018-01-03] MEDS: Fluconazole IV 100mg/50 ml NS 50 ML IVPB SCH (08:11)
[2018-01-03] MEDS: ceFAZolin 1 GM in Sodium Chloride 0.9% 100 ML IVPB SCH (08:12)
[2018-01-03] MEDS: Omega-3-Acid Ethyl Esters 1 GM Cap PO SCH (08:13)
[2018-01-03] MEDS: Insulin Lispro (humaLOG) 100 Units/ml Inj SC SCH ×2 (08:14→12:11)
[2018-01-03] MEDS: Pantoprazole 40 mg EC Tab PO SCH (08:15)
--- NOTE | 2018-01-03 12:40 | PQF GENQUE ---
Dr. Torres, Please clarify the type of atrial fibrillation:if known >> Chronic >> Paroxysmal >> Permanent >> Persistent >> Other (please specify type) >> Clinically unable to determine >> Unknown H and P; Patient has a history of Atrial fibrillation, on anticoagulation with Eliquis and then after Xarelto. This form is a permanent part of the medical record Clarification of your documentation is requested to better reflect the severity of illness and intensity of treatment of your patient. Indicators present [] Specify: [] [] Specify: [] [] Specify: [] [] Specify: [] Location in the medical record that reflects the above clinical findings: [] Treatment Provided: [] PHYSICIAN'S RESPONSE Based on your medical judgment of the clinical indicators outlined above please clarify the following: [] Practitioner response [] If unable to determine, please check the box, sign and date. Present On Admission (POA) Indicator: [] Present at the time of admission [] Not present at the time of admission [] Clinically Undetermined In responding to this query, please exercise your independent professional judgment. The fact that a question is asked does not imply that any particular answer is desired or expected. Thank you for your clarification on this documentation. If you have any questions please call. * Thank you, Mayra Bustos RN ext. #[phone] MTDD
--- NOTE | 2018-01-03 20:27 | CP.PCM.DIS ---
Provider - Provider Date of Admission: 01/01/18 10:28 Attending physician: Corbin Torres MD Time Spent in preparation of Discharge (in minutes): 25 Diagnosis - Discharge Diagnosis (1) Cellulitis of arm Status: Acute (2) Rash in adult Status: Acute (3) Multiple ecchymoses of both upper arms Status: Acute Hospital Course - Lab Results Lab Results: Micro Results 12/29/17 19:00 Blood-Venous Blood Culture - Final NO GROWTH AFTER 5 DAYS 12/29/17 19:00 Blood-Venous Gram Stain - Final TEST NOT PERFORMED 12/29/17 18:21 Blood-Venous Blood Culture - Final NO GROWTH AFTER 5 DAYS Most Recent Lab Values WBC 8.5 K/uL (4.8-10.8) 01/02/18 06:30 RBC 4.48 Mil/uL (4.40-5.90) 01/02/18 06:30 Hgb 13.4 g/dL (12.0-18.0) 01/02/18 06:30 Hct 40.1 % (35.0-51.0) 01/02/18 06:30 MCV 89.5 fl (80.0-94.0) 01/02/18 06:30 MCH 29.8 pg (27.0-31.0) 01/02/18 06:30 MCHC 33.3 g/dL (33.0-37.0) 01/02/18 06:30 RDW 14.7 % (11.5-14.5) H 01/02/18 06:30 Plt Count 220 K/uL (130-400) 01/02/18 06:30 MPV 8.2 fl (7.2-11.7) 12/30/17 05:25 Neut % (Auto) 63.3 % (50.0-75.0) 12/30/17 05:25 Lymph % (Auto) 15.1 % (20.0-40.0) L 12/30/17 05:25 Edmonson % (Auto) 11.2 % (0.0-10.0) H 12/30/17 05:25 Eos % (Auto) 9.3 % (0.0-4.0) H 12/30/17 05:25 Baso % (Auto) 1.1 % (0.0-2.0) 12/30/17 05:25 Neut # (Auto) 5.1 K/uL (1.8-7.0) 12/30/17 05:25 Lymph # (Auto) 1.2 K/uL (1.0-4.3) 12/30/17 05:25 Edmonson # (Auto) 0.9 K/uL (0.0-0.8) H 12/30/17 05:25 Eos # (Auto) 0.8 K/uL (0.0-0.7) H 12/30/17 05:25 Baso # (Auto) 0.1 K/uL (0.0-0.2) 12/30/17 05:25 ESR 20 mm/hr (0-20) 01/01/18 12:05 PT 17.1 Seconds (9.8-13.1) H 12/29/17 18:21 INR 1.5 (0.9-1.2) H 12/29/17 18:21 APTT 54.9 Seconds (25.6-37.1) H 12/29/17 18:21 pO2 49 mm/Hg (30-55) 12/29/17 18:44 VBG pH 7.35 (7.32-7.43) 12/29/17 18:44 VBG pCO2 50 mmHg (40-60) 12/29/17 18:44 VBG HCO3 25.4 mmol/L 12/29/17 18:44 VBG Total CO2 29.1 mmol/L (22-28) H 12/29/17 18:44 VBG O2 Sat (Calc) 79.4 % (40-65) H 12/29/17 18:44 VBG Base Excess 1.2 mmol/L (0.0-2.0) 12/29/17 18:44 VBG Potassium 4.3 mmol/L (3.6-5.2) 12/29/17 18:44 Sodium 138.0 mmol/L (132-148) 12/29/17 18:44 Chloride 102.0 mmol/L (98-107) 12/29/17 18:44 Glucose 91 mg/dL (75-110) 12/29/17 18:44 Lactate 2.0 mmol/L (0.7-2.1) 12/29/17 18:44 FiO2 21.0 % 12/29/17 18:44 Crit Value Called To dayne Moore md 12/29/17 18:44 Crit Value Called By Derik millard 12/29/17 18:44 Crit Value Read Back Y 12/29/17 18:44 Blood Gas Notified Time 185512/29/17 18:44 Sodium 139 mmol/l (132-148) 01/02/18 06:30 Potassium 4.3 MMOL/L (3.6-5.0) 01/02/18 06:30 Chloride 97 mmol/L (98-107) L 01/02/18 06:30 Carbon Dioxide 27 mmol/L (22-30) 01/02/18 06:30 Anion Gap 19 (10-20) 01/02/18 06:30 BUN 33 mg/dl (9-20) H 01/02/18 06:30 Creatinine 1.5 mg/dl (0.8-1.5) 01/02/18 06:30 Est GFR ( Amer) 55 01/02/18 06:30 Est GFR (Non-Af Amer) 46 01/02/18 06:30 POC Glucose (mg/dL) 151 mg/dL (65-110) H 01/03/18 11:06 Random Glucose 88 mg/dL (75-110) 01/02/18 06:30 Calcium 9.7 mg/dL (8.4-10.2) 01/02/18 06:30 Total Bilirubin 0.5 mg/dl (0.2-1.3) 12/30/17 05:25 AST 25 U/L (17-59) 12/30/17 05:25 ALT 30 U/L (21-72) 12/30/17 05:25 Alkaline Phosphatase 48 U/L (38-126) 12/30/17 05:25 C-Reactive Protein 9.60 mg/L (0.0-9.9) 12/30/17 05:25 Total Protein 6.8 G/DL (6.3-8.2) 12/30/17 05:25 Albumin 3.8 g/dL (3.5-5.0) 12/30/17 05:25 Globulin 3.0 gm/dL (2.2-3.9) 12/30/17 05:25 Albumin/Globulin Ratio 1.3 (1.0-2.1) 12/30/17 05:25 Alpha Fetoprotein 2.1 IU/mL (0.0-7.22) 01/01/18 12:05 Carcinoembryonic Ag 2.7 ng/mL (0-3.0) 01/01/18 12:05 CA 19-9 Antigen 66.7 U/mL (0-37) H 01/01/18 12:05 TSH 3rd Generation 1.88 mIU/ML (0.46-4.68) 12/30/17 05:25 Venous Blood Potassium 4.3 mmol/L (3.6-5.2) 12/29/17 18:44 DANTE Nuclear Membr Pat Negative (Negative) 12/30/17 05:25 - Hospital Course Hospital Course: A 77 year old male who presented with multiple pruritic maculopapular rash to b/ l lower extremities and swelling, redness and ecchymosis to the upper extremities. The patient was treated with IV antibiotics for the cellulitis and also with diflucan for the rash. The patient improved significantly with treatment. The patient was seen by psychic reader who recommended outpatient follow up. The patient was discharged home on oral antibiotics and topical skin lotions. Discharge Exam - Head Exam Head Exam: ATRAUMATIC, NORMOCEPHALIC - Respiratory Exam Respiratory Exam: Clear to PA & Lateral, NORMAL BREATHING PATTERN - Cardiovascular Exam Cardiovascular Exam: REGULAR RHYTHM, +S1, +S2 - GI/Abdominal Exam GI & Abdominal Exam: Normal Bowel Sounds, Soft - Neurological Exam Neurological exam: Alert, Oriented x3, Reflexes Normal - Psychiatric Exam Psychiatric exam: Normal Affect, Normal Mood - Skin Skin Exam: Dry, Normal Color, Warm Discharge Plan - Discharge Medications Prescriptions: Calamine/Zinc Oxide [Calamine Lotion] 1 applic TOP BID PRN #1 bottle PRN Reason: Itching / Pruritus Fluconazole [Diflucan] 100 mg PO DAILY #10 tab Cephalexin [Keflex] 500 mg PO Q8 #21 Clotrimazole 1% Cream [Lotrimin 1% CREAM] 1 applic TOP BID #1 tube - Follow Up Plan Condition: STABLE Disposition: HOME/ ROUTINE Instructions: Taking Care of Bruises, Cellulitis (Skin Infection), Adult (DC) Additional Instructions: follow up with animal behaviourist and psychic reader in 1 week Referrals: Goyo Lima MD [Staff Provider] - Cristobal Garland MD [Staff Provider] -
== END 2018-01-03 14:30 | disposition home or self-care (01) | DRG 603 ==
LOC: H.ER 17:10 → H.ERHOLD 19:44 → H.MEDSURG1 21:28 → OBSVTOIN 01-01 10:28 → H.MEDSURG1 01-01 17:27
PROVIDERS: ADMIT Internal Medicine; ATTEND Internal Medicine
DX: L03.113 Cellulitis of right upper limb (principal); E11.9 Type 2 diabetes mellitus without complications; I10 Essential (primary) hypertension; Z88.0 Allergy status to penicillin; I25.2 Old myocardial infarction; Z95.0 Presence of cardiac pacemaker; L29.9 Pruritus, unspecified; L27.0 Generalized skin eruption due to drugs and medicaments taken internally; I48.2 Chronic atrial fibrillation

== ENCOUNTER 2018-06-15 07:32 | Day surgery (SDC) | payer MEDICARE, MEDICAID ==
[2018-06-15] MEDS ORDERED: Lactated Ringer's 500 ML IV ONE ×2 (07:49→10:02)
[2018-06-15] MEDS ORDERED: EPINEPHrine 1 mg/ml (1:1000) Inj ONE (08:40)
[2018-06-15] MEDS ORDERED: Methylene Blue 10 mg/mL(10ml) IV ONE (09:03)
[2018-06-15] MEDS ORDERED: Propofol 10 mg/ml Inj (20 ML) ONE (09:32)
[2018-06-15] MEDS ORDERED: Glucagon Recombinant 1 mg Inj ONE (09:41)
[2018-06-15 10:13] VITALS: TEMP 97
[2018-06-15 10:25] VITALS: BP 119/66; PULSE 68; RESP 18; O2SAT 100
== END 2018-06-15 14:56 | disposition home or self-care (01) ==
LOC: H.ENDO 07:32
PROVIDERS: ATTEND Internal Medicine Gastroenterology
DX: Z12.11 Encounter for screening for malignant neoplasm of colon (principal); I25.10 Atherosclerotic heart disease of native coronary artery without angina pectoris; E11.9 Type 2 diabetes mellitus without complications; E78.5 Hyperlipidemia, unspecified; I10 Essential (primary) hypertension; K21.9 Gastro-esophageal reflux disease without esophagitis; K64.1 Second degree hemorrhoids; D12.5 Benign neoplasm of sigmoid colon; K57.30 Diverticulosis of large intestine without perforation or abscess without bleeding
CPT/HCPCS: 43239; 45380; 82948; 88305; J1610; J2001; J2704; J7120

== ENCOUNTER 2018-10-05 08:52 | Day surgery (SDC) | payer MEDICARE, MEDICAID ==
[2018-10-05] MEDS ORDERED: Lactated Ringer's 500 ML IV ONE (09:10)
[2018-10-05 09:31] VITALS: O2SAT 95
[2018-10-05] MEDS ORDERED: Propofol 10 mg/ml Inj (20 ML) ONE (10:16)
[2018-10-05] MEDS ORDERED: EPINEPHrine 1 mg/ml (1:1000) Inj ONE (10:33)
[2018-10-05 10:45] VITALS: TEMP 97
[2018-10-05 11:00] VITALS: BP 123/68; PULSE 70; RESP 20
== END 2018-10-05 11:20 | disposition home or self-care (01) ==
LOC: H.ENDO 08:52
PROVIDERS: ATTEND Internal Medicine Gastroenterology
DX: K21.9 Gastro-esophageal reflux disease without esophagitis (principal); I25.10 Atherosclerotic heart disease of native coronary artery without angina pectoris; E11.9 Type 2 diabetes mellitus without complications; E78.5 Hyperlipidemia, unspecified; I10 Essential (primary) hypertension; K31.89 Other diseases of stomach and duodenum; K31.7 Polyp of stomach and duodenum; K29.50 Unspecified chronic gastritis without bleeding
CPT/HCPCS: 43239; 82948; 88305; J0171; J2001; J2704; J7120

== ENCOUNTER 2018-12-28 07:21 | Day surgery (SDC) | payer MEDICARE, MEDICAID ==
[2018-12-28] MEDS ORDERED: Lactated Ringer's 500 ML IV ONE (07:53)
[2018-12-28 07:57] VITALS: BMI 27.6
[2018-12-28] MEDS ORDERED: Glucagon Recombinant 1 mg Inj ONE (09:06)
[2018-12-28] MEDS ORDERED: Methylene Blue 10 mg/mL(10ml) IV ONE (09:06)
[2018-12-28] MEDS ORDERED: Propofol 10 mg/ml Inj (20 ML) ONE (09:15)
[2018-12-28] MEDS ORDERED: Etomidate 20 mg/10ml Inj IV ONE (09:15)
[2018-12-28] MEDS ORDERED: Lactated Ringer's 1,000 ML IV ONE (09:30)
[2018-12-28 10:02] VITALS: BP 117/70; PULSE 83; RESP 21; TEMP 97; O2SAT 95
== END 2018-12-28 13:49 | disposition home or self-care (01) ==
LOC: H.ENDO 07:21
PROVIDERS: ATTEND Internal Medicine Gastroenterology
DX: K44.9 Diaphragmatic hernia without obstruction or gangrene (principal); K29.70 Gastritis, unspecified, without bleeding; R10.13 Epigastric pain; I25.10 Atherosclerotic heart disease of native coronary artery without angina pectoris; E11.9 Type 2 diabetes mellitus without complications; E78.5 Hyperlipidemia, unspecified; I10 Essential (primary) hypertension
CPT/HCPCS: 43239; 82948; 88305; J1610; J2001; J2704; J7120